=== PATIENT | female | born 1990 | race Two or more races ===

== ENCOUNTER 2023-08-28 08:46 | Day surgery (SDC) | payer BC ==
[~2023-08-28 08:46] MED LIST: Sodium Chloride 0.9% 10 ML Syringe FLUSH PRN; Sodium Chloride 0.9% 2.5 ML Syringe FLUSH PRN; Sodium Chloride 0.9% 20 ML SDV IV PRN
[2023-08-28] MEDS: Lactated Ringers 1,000 ML IV SCH (09:52)
[2023-08-28] MEDS ORDERED: propofoL 50 ML ONE (10:38)
[2023-08-28] MEDS ORDERED: Propofol 200 MG/20 ML SDV ONE (11:06)
[2023-08-28 13:11] VITALS: BP 115/59; PULSE 73
== END 2023-08-28 12:04 | disposition home or self-care (01) ==
LOC: MW.SDS 08:46
PROVIDERS: ATTEND Surgery
DX: K29.50 Unspecified chronic gastritis without bleeding (principal); B96.81 Helicobacter pylori [H. pylori] as the cause of diseases classified elsewhere; K62.1 Rectal polyp; F17.200 Nicotine dependence, unspecified, uncomplicated; K55.069 Acute infarction of intestine, part and extent unspecified
CPT/HCPCS: 43239; 45380; 81025; J2704; J7120; 00813